=== PATIENT | male | born 1960 | race Two or more races ===

== ENCOUNTER 2016-11-17 19:59 | Inpatient (IN) | payer SELFPAY ==
[~2016-11-17] VITALS: Ht 162.6 cm; Wt 119.3 kg
--- NOTE | 2016-11-17 20:00 | NUR ---
PT BIBRA FROM HOME. PER RA PT WAS FOUND NOT BREATHING. PT WAS GIVEN NARCAN 4MG IVP. PT AOX4 ON ARRIVAL. RR EVEN AND UNLABORED. NO SOB NOTED. NAD NOTED. NO NVD AT THIS TIME. PT NOT DIAPHORETIC. PT GOWNED AND PLACED ON MONITOR WAITING FOR MD PAULSON.
--- NOTE | 2016-11-17 20:17 | NUR ---
BLOOD DRAWN, URINE COLLECTED AND SENT TO LAB.
--- NOTE | 2016-11-17 20:39 | NUR ---
SON AT BEDSIDE.
[2016-11-17] MEDS ORDERED: NALOXONE PREFILLED SYRINGE 2 MG/2 ML SYRINGE ONE (20:54)
[2016-11-17 20:56] LABS: BASOPHILS # (AUTO) 0.4 /CMM (0.0-0.2); EOSINOPHILS # (AUTO) 0.6 /CMM (0.0-0.7); HEMATOCRIT 41 % (39-51); HEMOGLOBIN 13.2 g/dL (13.5-17.5); LYMPHOCYTES # (AUTO) 5.5 /CMM (0.8-4.8); LYMPHOCYTES % (AUTO) 29.6 % (20.0-44.0); MEAN CORPUSCULAR HEMOGLOBIN 27 PG (26.0-33.0); MEAN CORPUSCULAR HGB CONC 32 g/dl (31.0-36.0); MEAN CORPUSCULAR VOLUME 84 fL (80-96); MONOCYTES # (AUTO) 1.6 /CMM (0.1-1.30); MONOCYTES % (AUTO) 8.7 % (2.0-12.0); NEUTROPHILS # (AUTO) 10.6 /CMM (1.8-8.9); NEUTROPHILS % (AUTO) 56.7 % (43.0-81.0); PLATELET COUNT (AUTO) 228 /CMM (150-450); RDW COEFFICIENT OF VARIATION 13.4 (11.5-15.0); RED BLOOD CELL COUNT(AUTO) 4.91 MIL/uL (4.5-6.0); WHITE BLOOD COUNT (AUTO) 18.7 K/uL (4.3-11.0)
[2016-11-17] MEDS ORDERED: NALOXONE HCL 0.4 MG/ML AMPUL IV ONE (21:00)
[2016-11-17 21:03] LABS: CALCIUM, SERUM 8.1 mg/dL (8.5-10.1); CARBON DIOXIDE 20 mmol/L (21-32); CHLORIDE 101 mmol/L (98-107); CREATININE 1.2 mg/dL (0.6-1.3); GLUCOSE 234 mg/dL (74-106); POTASSIUM 3.1 mmol/L (3.5-5.1); SODIUM SERUM 135 mmol/L (136-145); UREA NITROGEN, BLOOD 14 mg/dL (7-18)
[2016-11-17 21:04] LABS: INR 0.99 (0.87-1.13); PROTHROMBIN TIME 10.3 SECS (9.5-12.7)
--- NOTE | 2016-11-17 21:08 | NUR ---
PT TO CT.
[2016-11-17 21:17] LABS: ALANINE AMINOTRANSFERASE 28 U/L (12-78); ALBUMIN 3.3 g/dL (3.4-5.0); ALCOHOL, BLOOD 76 mg/dL (0-0); ALKALINE PHOSPHATASE 89 U/L (46-116); ASPARTATE AMINOTRANSFERASE 29 U/L (15-37); BILIRUBIN,DIRECT 0.1 mg/dL (0.0-0.2); BILIRUBIN,TOTAL 0.3 mg/dL (0.2-1.0); TOTAL PROTEIN, SERUM 7.6 g/dL (6.4-8.2)
--- NOTE | 2016-11-17 21:17 | NUR ---
PT RETURNED FROM CT.
[2016-11-17 21:18] LABS: ACETAMINOPHEN 0 ug/ml (10-30); SALICYLATE 1.2 mg/dL (2.8-20.0)
--- NOTE | 2016-11-17 21:18 | NUR ---
XRAY AT BEDSIDE
[2016-11-17 21:20] LABS: THYROID STIMULATING HORMONE 3.076 uIU/mL (0.358-3.74)
[2016-11-17 21:21] LABS: TROPONIN I < 0.017 ng/mL (0.00-0.056)
--- NOTE | 2016-11-17 21:27 | NUR ---
PT ADMITS TO TAKING COCAINE. DR. ERWIN KURTZ.
--- NOTE | 2016-11-17 21:29 | NUR ---
DR. HOOD AT BEDSIDE FOR EVAL.
[2016-11-17] MEDS ORDERED: IV SET PRIMARY 1 EA INFUS.SET MC ONE (21:36)
[2016-11-17] MEDS ORDERED: IV NS 0.9% 250 ML IV ONE (21:36)
[2016-11-17] MEDS ORDERED: POTASSIUM CL. PREMIX PERIPHER. 50 ML ONE (21:36)
[2016-11-17] MEDS ORDERED: IV SET PRIMARY PUMP SET 1 EA INFUS.SET MC ONE ×2 (21:36→22:02)
[2016-11-17] MEDS: POTASSIUM CL. PREMIX PERIPHER. 50 ML IV SCH (21:46)
--- NOTE | 2016-11-17 21:46 | NUR ---
VERBAL ORDERS PT DR. ERWIN DICK TO USE IVPB 250CC NS TO INFUSE WITH IVPB POTASSIUM 50ML/10MEQ
--- NOTE | 2016-11-17 21:48 | NUR ---
RT AT BEDSIDE FOR ABG DRAW.
--- NOTE | 2016-11-17 21:59 | NUR ---
IV STARTED ON LEFT AC 18G. BLOOD CX COLLECTED.
[2016-11-17] MEDS ORDERED: DEXTROSE 50%-WATER 50 ML DISP.SYRIN IV PRN (22:00)
[2016-11-17] MEDS ORDERED: ONDANSETRON HCL/PF 4 MG/2 ML VIAL IVP PRN (22:00)
[2016-11-17] MEDS ORDERED: HYDROCODONE/APAP 5/325MG 1 EACH TABLET PO PRN (22:00)
[2016-11-17] MEDS ORDERED: MAG HYDROX/AL HYDROX/SIMETH 30 ML UDC PO PRN (22:00)
[2016-11-17] MEDS ORDERED: ACETAMINOPHEN 325 MG TABLET PO PRN (22:00)
[2016-11-17] MEDS ORDERED: ZOLPIDEM TARTRATE 5 MG TABLET PO PRN (22:00)
[2016-11-17] MEDS ORDERED: Z GUARD REMEDY 2 OZ OINT TP PRN (22:00)
[2016-11-17] MEDS ORDERED: MAGNESIUM HYDROXIDE 30 ML UDC PO PRN (22:00)
[2016-11-17] MEDS ORDERED: LEVOFLOXACIN 750 MG /D5W 150ML PIGGYBACK IV ONE (22:00)
[2016-11-17] MEDS ORDERED: LEVOFLOXACIN 750 MG /D5W 150ML 150 ML IV ONE (22:02)
--- NOTE | 2016-11-17 22:02 | NUR ---
CALLED LAB FOR CABINET BUILDER.
--- NOTE | 2016-11-17 22:34 | NUR ---
REPORT GIVEN TO AUDIO VISUAL FACILITIES ENGINEERTORI GE FOR 315.
--- NOTE | 2016-11-17 23:20 | NUR ---
PT TRASNFERED PER ACLS PROTOCOL.
[2016-11-17 23:21] LABS: ABG BASE EXCESS -5.1 mmol/L; ABG OXYGEN SATURATION 85.1 % (92.0-98.5); ABG PCO2 43.4 mmHg (35.0-45.0); ABG PH 7.304 (7.350-7.450); ABG PO2 55.8 mmHg (75.0-100.0); AaDO2 121.6 mmHg; COHb 0.7 % (0.5-1.5); MetHb 0.5 % (0.0-1.5); O2Hb 84.1 % (94.0-97.0); SITE, ABG Right Radial; VENT MODE, BG 3L NC
[2016-11-17 23:25] VITALS: BP 155/95
--- NOTE | 2016-11-17 23:30 | NUR ---
RN ADMITTING NOTES RECEIVED REPORT FROM SYSTEMS TECHNOLOGIST, RUT. Pt ARRIVED TO FLOOR VIA GURNEY. AT BEDSIDE. Pt IS A/OX3, SPEAKS & UNDERSTANDS [place] WELL, MAIN LANGUAGE [place]. Pt IS VERBAL AND ABLE TO MAKE NEEDS KNOWN. NO S/S OF ACUTE DISTRESS OR SEVERE SOB NOTED. IV ACCESS ON L & R AC #18G. ON 3L O2 NC, SAT AT 95%. SAFETY MEASURES IN PLACE. BED LOW, LOCKED, HOB ELEVATED, SIDE RAILS UP, CALL LIGHT AND BEDSIDE TABLE WITHIN REACH. WILL CONTINUE TO MONITOR Pt THROUGHOUT THE NIGHT FOR SAFETY. 1ST BAG OUT OF 4 FOR POTASSIUM CHLORIDE ALREADY GIVEN IN ER. WILL CONTINUE THE REMAINING 3 BAGS HERE.
--- NOTE | 2016-11-17 23:45 | NUR ---
BG 175. ADMINISTERED 3UN OF INSULIN COVERAGE PER SLIDING SCALE.
--- NOTE | 2016-11-18 | NUR ---
RN NOTES WAS NOT ABLE TO DOCUMENT A PROPER MED RECON FOR THE Pt BECAUSE HE DID NOT REMEMBER THE NAMES OF THE MEDICATIONS. ALL Pt RECALLED WAS THAT HE WAS TAKING SOME KIND OF BP MED AND CHOLESTEROL MED. Pt SAID THAT HIS SON, LAYLA, WOULD BRING THE MEDS TOMORROW WHEN HE VISITS. WILL INFORM DAYSHIFT RN ABOUT THE SITUATION.
[2016-11-18] MEDS ORDERED: IV NS 0.9% 1,000 ML ONE (00:10)
[2016-11-18] MEDS ORDERED: POTASSIUM CL. PREMIX PERIPHER. 150 ML ONE (00:23)
[2016-11-18] MEDS ORDERED: IV SET PRIMARY PUMP SET 1 EA INFUS.SET MC ONE (00:23)
[2016-11-18] MEDS: IV NS 0.9% 1,000 ML IV PRN ×2 (00:28→16:43)
[2016-11-18] MEDS ORDERED: SECONDARY IV SET 1 EA INFUS.SET MC ONE ×2 (00:31→13:13)
[2016-11-18] MEDS: BLOOD SUGAR DIAGNOSTIC 1 EACH STRIP IN SCH ×5 (00:44→21:28)
[2016-11-18] MEDS: INSULIN REGULAR, HUMAN 100 UNIT/ML 3 ML VIAL SQ PRN ×5 (00:48→21:30)
--- NOTE | 2016-11-18 01:00 | NUR ---
RN NOTES 2ND BAG OF KCL GIVEN.
[2016-11-18] MEDS: POTASSIUM CL. PREMIX PERIPHER. 50 ML IV SCH ×3 (01:05→03:52)
--- NOTE | 2016-11-18 02:15 | NUR ---
RN NOTES 3RD BAG OF KCL GIVEN
--- NOTE | 2016-11-18 03:15 | NUR ---
RN NOTES FINAL 4TH BAG OF KCL GIVEN.
[2016-11-18 04:04] VITALS: BP 132/85
--- NOTE | 2016-11-18 06:30 | NUR ---
BG 167. ADMINISTERED 3UN OF INSULIN PER SLIDING SCALE.
--- NOTE | 2016-11-18 06:32 | NUR ---
RN CLOSING NOTES NO SIGNIFICANT CHANGES NOTED DURING THE NIGHT. ALL NEEDS MET AND ATTENDED TO. NO S/S OF ACUTE DISTRESS OR SOB NOTED. SAFETY MEASURES IN PLACE. WILL ENDORSE TO DAYSHIFT RN FOR Pt's SEBASTIAN. TELE READING ST 108
[2016-11-18 07:14] VITALS: BP 124/66
[2016-11-18 07:24] LABS: BASOPHILS % (AUTO) 0.1 % (0.0-2.0); HEMATOCRIT 39 % (39-51); HEMOGLOBIN 13.1 g/dL (13.5-17.5); LYMPHOCYTES # (AUTO) 0.7 /CMM (0.8-4.8); LYMPHOCYTES % (AUTO) 3.4 % (20.0-44.0); MEAN CORPUSCULAR HEMOGLOBIN 28 PG (26.0-33.0); MEAN CORPUSCULAR HGB CONC 34 g/dl (31.0-36.0); MEAN CORPUSCULAR VOLUME 83 fL (80-96); MONOCYTES # (AUTO) 0.9 /CMM (0.1-1.30); NEUTROPHILS # (AUTO) 20.2 /CMM (1.8-8.9); NEUTROPHILS % (AUTO) 92.5 % (43.0-81.0); PLATELET COUNT (AUTO) 194 /CMM (150-450); RED BLOOD CELL COUNT(AUTO) 4.65 MIL/uL (4.5-6.0); WHITE BLOOD COUNT (AUTO) 21.8 K/uL (4.3-11.0)
[2016-11-18 07:44] LABS: CALCIUM, SERUM 7.8 mg/dL (8.5-10.1); CREATININE 0.9 mg/dL (0.6-1.3); MAGNESIUM 1.6 mg/dL (1.8-2.4); PHOSPHORUS 2.3 mg/dL (2.5-4.9); POTASSIUM 4.4 mmol/L (3.5-5.1)
[2016-11-18 08:00] VITALS: BP 118/81
--- NOTE | 2016-11-18 08:03 | NUR ---
INSPECTOR AND TESTER NOTES RECEIVED PATIENT IN BED, A/O X 4, VERBALLY RESPONSIVE. NO APPARENT DISTRESS NOTED, DENIES PAIN DENIES SOB. ON O2 3L VIA NC CANULA, ON TELE MONITORING SR 91. IV LINES ON LEFT AC AND RIGHT AC PATENT. NS AT 100 ML/HR INFUSING ON THE LEFT AC. ALL NEEDS MET, KEPT CLEAN AND DRY.
[2016-11-18] MEDS ORDERED: [UNRECOGNIZED DRUG - REMARK] (08:08)
[2016-11-18] MEDS: PANTOPRAZOLE 40 MG TABLET.DR PO SCH (09:24)
[2016-11-18] MEDS ORDERED: BENA20TA2 PO (11:17)
[2016-11-18] MEDS ORDERED: METF10002 PO (11:19)
--- NOTE | 2016-11-18 12:45 | NUR ---
RN MS NOTES PATENT SEEN AND EVALUATED BY DR CALDERÓN, PER DR CALDERÓN OK TO CONTINUE HOME MEDS, METFORMIN AND BENAZEPRIL. NEW ORDER FOR LOVENOX 40 MG SQ DAILY. ORDERS NOTED AND CARRIED OUT.
[2016-11-18] MEDS: Magnesium 1GM/D5W 100ML PREMIX 100 ML IV SCH ×2 (13:21→14:37)
--- NOTE | 2016-11-18 15:05 | NUR ---
Social service consult for possible Alcohol abuse. Pt. was admitted to [facility] for altered mental status. GRACIELA met with pt. bedside with NETO Deshpande to assist SW to translate in Chinese. Pt. is an alert and oriented 56 year old male. Pt. resides with his two sons and his son's `girlfriend. Pt. is currently employed in [employer]. Pt. states he is diabetic but is not medication compliant. SW encouraged pt. to take his medications. Pt. states he drinks approximately 6 to 8 beers per day. Pt. denies using drugs or marijuana. SW offered pt. alcohol treatment program resources, however pt. declined.
--- NOTE | 2016-11-18 15:39 | NUR ---
RN MS NOTES NUTRITIONAL ASSESSMENT DONE BY DIETITIAN, RECOMMENDED CHANGING DIET TO 75GM CARB, NOTIFIED.
[2016-11-18 16:00] VITALS: BP 146/80
[2016-11-18] MEDS ORDERED: K PHOS NEUTRAL 250 MG TABLET PO ONE (16:30)
[2016-11-18] MEDS: METFORMIN 500 MG TABLET PO SCH (16:44)
--- NOTE | 2016-11-18 19:25 | NUR ---
RN MS NOTES PATIENT IN BED, IN NO APPARENT DISTRESS, A/OX3. ALL DUES MEDS GIVEN, ALL NEEDS MET. REPLACED TWO BAGS OF MAG. IV LINES ON LEFT AND RIGHT AC PATENT, NS INFUSING AT 100ML/HR ON LEFT AC. WILL ENDORSE CARE TO PM SHIFT.
--- NOTE | 2016-11-18 19:30 | NUR ---
RN NOTE; RECEIVED PT IN BED AWAKE AND ALERT. OX4. BREATHING EVENLY. NO SOB. NO DISTRESS. STATED FEELING MUCH BETTER. REMAINED IN HIS NORMAL BASELINE OF MENTAL STATUS. WILL CONT TO MONITOR.
[2016-11-18 20:00] VITALS: BP_SYST 119; BP_SYST 138; BP_DIAS 62; BP_DIAS 67
[2016-11-18] MEDS ORDERED: ENOXAPARIN SODIUM 40 MG/0.4 ML DISP.SYRIN SQ SCH (21:00)
[2016-11-19] MEDS: IV NS 0.9% 1,000 ML IV PRN (03:24)
--- NOTE | 2016-11-19 03:25 | NUR ---
TYLENOL 650MG GIVEN ORDERED FOR C/O BEING SORE AROUND TRUNK AREA DUE TO CPR . WILL CONT TO MONITOR
--- NOTE | 2016-11-19 06:10 | NUR ---
RN NOTE; PT IN BED SLEEPING, AROUSES EASILY,. BREATHING EVENLY/ NO SOB/ NAD. NO ACUTE CHANGES OVER THE NIGHT. REMAINED ON THE BASE LINE LOC. NO CHANGE IN MENTAL STATUS. ASSISTED W/ ADLS.. CALL LIGHT WITHIN REACH, WILL CONT TO MONITOR AND WILL ENDORSE TO AM SHIFT FOR SEBASTIAN;
[2016-11-19] MEDS: BLOOD SUGAR DIAGNOSTIC 1 EACH STRIP IN SCH ×3 (06:44→17:03)
[2016-11-19] MEDS: INSULIN REGULAR, HUMAN 100 UNIT/ML 3 ML VIAL SQ PRN ×2 (06:45→11:52)
--- NOTE | 2016-11-19 07:30 | NUR ---
MS TORI AM NOTES PATIENT IN BED, A/O X 4, ON 3L O2 ON AND OFF, NO APPARENT DISTRESS NOTED, NO SOB, DENIES PAIN, IV LINES ON LEFT AC AND RIGHT AC PATENT BOTH FLUSHES WELL, NS AT 100 ML/HR INFUSING ON THE LEFT AC. BOTH SITES CLEAR. CCHO 75 GM DIET, AMBULATORY, SAFETY MEASURES IN PLACE. CALL LIGHT WITHIN REACH. WILL CONT TO MONITOR.
[2016-11-19 07:56] LABS: CALCIUM, SERUM 7.8 mg/dL (8.5-10.1); CREATININE 0.7 mg/dL (0.6-1.3); MAGNESIUM 2.1 mg/dL (1.8-2.4); PHOSPHORUS 2.5 mg/dL (2.5-4.9); POTASSIUM 3.8 mmol/L (3.5-5.1)
[2016-11-19 08:00] VITALS: BP 134/75
[2016-11-19] MEDS: METFORMIN 500 MG TABLET PO SCH ×2 (08:41→17:02)
[2016-11-19] MEDS: PANTOPRAZOLE 40 MG TABLET.DR PO SCH (08:41)
[2016-11-19] MEDS ORDERED: BENAZEPRIL HCL 20 MG TABLET PO SCH (09:00)
--- NOTE | 2016-11-19 09:30 | NUR ---
MS RN NOTES ADMINISTERED DUE MEDS.
--- NOTE | 2016-11-19 11:50 | NUR ---
MS RN NOTES ACCUCHECK DONE. BS 169 MG/DL. ADMINISTERED 3 UNITS HUM R PER SS.
[2016-11-19 16:00] VITALS: BP 138/76
--- NOTE | 2016-11-19 17:01 | NUR ---
MS RN NOTES ACCUCHECK DONE. BS 121 MG/DL. NO INSULIN COVERAGE GIVEN.
[2016-11-19 17:49] VITALS: BP 153/59
--- NOTE | 2016-11-19 17:51 | NUR ---
MS STILL WORKER HELPER NOTES PATIENT DISCHARGED TO HOME TODAY PER MD IN STABLE CONDITION. PROVIDED DC INSTRUCTIONS, MED RECON LIST AND HEALTH TEACHINGS. LEFT AC AND RT AC IV ACCESS REMOVED, CATH TIP COMPLETE, PRESSURE APPLIED, NO BLEEDING, DRESSING IN PLACE. TO FOLLOW UP WITH PCP AND DR. JOINER IN 1 WEEK. WILL MAKE OWN SCHEDULE. ALL BELONGINGS CHECKED AND RETURNED. ALL PAPERWORKS SIGNED. ACCOMPANIED BY FAMILY MEMBERS AND DESHAUN DUQUE TO LOBBY VIA WHEELCHAIR AND WILL GO HOME VIA PRIVATE CAR.
== END 2016-11-19 17:50 | disposition home or self-care (01) | DRG 917 ==
LOC: ER 20:01 → TELE 22:43 → MED 11-18 13:03
PROVIDERS: ADMIT Internal Medicine; ATTEND Internal Medicine
DX: T65.891A Toxic effect of other specified substances, accidental (unintentional), initial encounter (principal); G92 Toxic encephalopathy; N17.0 Acute kidney failure with tubular necrosis; E43 Unspecified severe protein-calorie malnutrition; R65.11 Systemic inflammatory response syndrome (SIRS) of non-infectious origin with acute organ dysfunction; Z68.42 Body mass index [BMI] 45.0-49.9, adult; E87.1 Hypo-osmolality and hyponatremia; E87.2 Acidosis; Y92.009 Unspecified place in unspecified non-institutional (private) residence as the place of occurrence of the external cause; E11.9 Type 2 diabetes mellitus without complications; E66.01 Morbid (severe) obesity due to excess calories; D72.829 Elevated white blood cell count, unspecified; E86.0 Dehydration; E87.6 Hypokalemia; F17.200 Nicotine dependence, unspecified, uncomplicated; I10 Essential (primary) hypertension; F14.90 Cocaine use, unspecified, uncomplicated; Z72.89 Other problems related to lifestyle
CPT/HCPCS: 36415; 36600; 70450-TC; 71010-TC; 80048-TC; 80076-TC; 80305; 82962-TC; 83735-TC; 84100-TC; 84443-TC; 84484-TC; 85025-TC; 85730-TC; 87040-TC; 87081-TC; 97001-TC; A4606; G0480; J1650; J1815; J1956; J2310; J3475; J3480; J7030; J7050; Z7610